=== PATIENT | female | born 1985 | race Caucasian/White ===

== ENCOUNTER 2022-08-07 18:32 | Emergency (ER) | payer OTHER ==
[2022-08-07 18:46] VITALS: BP 100/62; PULSE 85; RESP 18; TEMP 97.9; BMI 40.2
[2022-08-07] MEDS ORDERED: ACETAMINOPHEN 500 MG TABLET (FP) PO ONE (21:18)
[2022-08-07] MEDS ORDERED: ACETAMINOPHEN 500 MG TABLET (FP) ONE (21:41)
[2022-08-07] MEDS ORDERED: IBUPROFEN 600 MG TABLET (FP) PO ONE ×2 (21:56→21:57)
== END 2022-08-07 22:12 | disposition home or self-care (01) ==
LOC: JER 18:32
DX: M79.662 Pain in left lower leg (principal)
CPT/HCPCS: 93971-TC; 99284-25